=== PATIENT | male | born 1985 | race African-American/Black ===

== ENCOUNTER 2016-11-30 11:18 | Emergency (ER) | payer SELFPAY ==
[~2016-11-30] VITALS: Ht 182.9 cm; Wt 81.6 kg
[2016-11-30 11:22] VITALS: BP 126/79
[2016-11-30 11:51] VITALS: BP 128/72
--- NOTE | 2016-11-30 14:51 | Emergency Room Report ---
History of Present Illness General Chief Complaint: General Complaint Source: Patient Present Illness Allergies: Coded Allergies: No Known Allergies (Unverified , 11/30/16) Nursing Documentation-[facility] Past Medical History: No Stated History Physical Exam Vital Signs Date Time Temp Pulse Resp B/P Pulse Ox O2 Delivery O2 Flow Rate FiO2 11/30/16 11:10 98.1 78 16 122/75 98 Room Air Medical Decision Making ER Course This patient refused laboratory work up and left without being seen. Last Vital Signs Date Time Temp Pulse Resp B/P Pulse Ox O2 Delivery O2 Flow Rate FiO2 11/30/16 11:51 62 15 128/72 99 Room Air 11/30/16 11:22 98.2 Disposition: LEFT W/OUT BEING SEEN Referrals: NOT CHOSEN IPA/,REFERRING (PCP) LINDA HEMPHILL D.O. Nov 30, 2016 14:51
== END 2016-11-30 11:50 | disposition left against medical advice (07) ==
LOC: EDBD 11:18 → EMR 11:33
DX: Z53.21 Procedure and treatment not carried out due to patient leaving prior to being seen by health care provider (principal)
CPT/HCPCS: 99283

== ENCOUNTER 2017-06-26 17:22 | Emergency (ER) | payer SELFPAY ==
[~2017-06-26] VITALS: Ht 182.9 cm; Wt 86.2 kg
[2017-06-26 17:40] VITALS: BP 130/70
[2017-06-26] MEDS ORDERED: Haloperidol 5mg/ml Inj IM ONE (18:00)
[2017-06-26] MEDS ORDERED: ZyPREXA Zydis 5mg tab ORAL ONE (18:45)
[2017-06-26 19:16] VITALS: BP 0/0
--- NOTE | 2017-06-26 19:49 | Emergency Room Report ---
History of Present Illness General Chief Complaint: General Complaint Source: Patient, EMS Present Illness HPI 31-year-old male presents ED for evaluation. Per EMS patient was found on the street. Patient says that he ingested a pill. Does not know what he took. During initial evaluation patient is talking to himself. Has psychiatric history. Denies suicidal or homicidal ideation. Denies drug use. Denies alcohol use. No other aggravating or relieving factors. Denies any other associated symptoms Allergies: Coded Allergies: No Known Allergies (Unverified , 11/30/16) Patient History Past Medical History: psych hx Past Surgical History: none Pertinent Family History: none Social History: Denies: smoking, alcohol use, drug use Immunizations: UTD Reviewed Nursing Documentation: PMH: Agreed, PSxH: Agreed Nursing Documentation-PMH History Of Psychiatric Problem: Yes - schizo Review of Systems All Other Systems: negative except mentioned in HPI Physical Exam Vital Signs Date Time Temp Pulse Resp B/P (MAP) Pulse Ox O2 Delivery O2 Flow Rate FiO2 06/26/17 17:18 98.9 110 18 130/70 99 Room Air 99.0 Sp02 EP Interpretation: reviewed, normal General Appearance: no apparent distress, alert, GCS 15, non-toxic Head: normocephalic, atraumatic Eyes: bilateral eye normal inspection, bilateral eye PERRL ENT: hearing grossly normal, normal pharynx, no angioedema, normal voice Neck: full range of motion, supple/symm/no masses Respiratory: chest non-tender, lungs clear, normal breath sounds, speaking full sentences Cardiovascular #1: regular rate, rhythm, no edema Cardiovascular #2: 2+ carotid (R), 2+ carotid (L), 2+ radial (R), 2+ radial (L) , 2+ dorsalis pedis (R), 2+ dorsalis pedis (L) Gastrointestinal: normal bowel sounds, non tender, soft, non-distended, no guarding, no rebound Rectal: deferred Genitourinary: normal inspection, no CVA tenderness Musculoskeletal: back normal, gait/station normal, normal range of motion, non- tender Neurologic: alert, responsive, motor strength/tone normal, sensory intact, speech normal Psychiatric: judgement/insight normal, memory normal, mood/affect normal, no suicidal/homicidal ideation, anxious Reflexes: 3+ bicep (R), 3+ bicep (L), 3+ tricep (R), 3+ tricep (L), 3+ knee (R) , 3+ knee (L) Skin: normal color, no rash, warm/dry, well hydrated Lymphatic: no adenopathy Medical Decision Making Diagnostic Impression: Primary Impression: Substance abuse ER Course Hospital Course 31-year-old male presents ED talking to himself after taking a pill Clinical course Patient placed on stretcher. Given that patient is able to provide an adequate history, I see no need to check blood work or place an IV. Patient given Zyprexa in ED. My assessment shows no evidence of SI/HI requiring psychiatric evaluation. patient is safe for discharge Diagnosis - substance abuse stable and discharged to home. Followup with PMD. Return to ED if symptoms recur or worsen Last Vital Signs Date Time Temp Pulse Resp B/P (MAP) Pulse Ox O2 Delivery O2 Flow Rate FiO2 06/26/17 19:16 0/0 06/26/17 17:40 99.0 18 99 Room Air 99.0 06/26/17 17:18 110 Status: improved Disposition: HOME, SELF-CARE Condition: Stable Referrals: NOT CHOSEN IPA/,REFERRING (PCP) Patient Instructions: Substance Use Disorder LEONIDAS PRICE M.D. Jun 26, 2017 19:49
== END 2017-06-26 19:19 | disposition home or self-care (01) ==
LOC: EDBD 17:22 → EMR 19:07
DX: F19.11 Other psychoactive substance abuse, in remission (principal); F20.9 Schizophrenia, unspecified
CPT/HCPCS: 96372; 99283; J1630